=== PATIENT | male | born 1955 | race African-American/Black ===

== ENCOUNTER 2017-04-08 22:24 | Emergency (ER) | payer BC, MEDICAID ==
[~2017-04-08] VITALS: Ht 180.3 cm; Wt 94.8 kg
[~2017-04-08 22:24] MED LIST: ALEVE220 M2 PO; ALEVE220 MG PO; AMOXICILLIN/CL875 MG PO; AMOXICILLIN500 MG PO; AMOXICILLIN875 MG OR; ANTIVERT PO; AUGMENTIN875TAB PO; BACTRIM DS1 TAB PO; CIPRO500 MG OR; CIPROFLOXACN500 MG PO; CLOPIDOGREL75 MG PO; DEBROX6.5 % OT; FLAGYL500 MG OR; FLEXERIL5 M1 PO; KETOROLAC60 MG/2 ML IJ; LOPROX0.771 EX; LORTAB 5 OR; MELOXICAM15 MG PO; METFORMIN HCL850 MG PO; METFORMIN500 MG PO; METFORMIN850 MG PO; METRONIDAZOL500 MG PO; MULTIVITAM10 PO; NAPROSYN500 MG PO; NO HOME MEDS; ONDANSETRON4 MG PO; TRIAMCINOLON0.11 EX; ULTRAM50 MG PO; VIAGRA100 MG PO; ZITHROMAX500 MG PO
[2017-04-08] MEDS ORDERED: ELIQUIS5 MG PO (22:36)
[2017-04-08] MEDS ORDERED: LISINOPRIL10 MG PO (22:37)
[2017-04-08] MEDS ORDERED: ATORVASTATIN CA10 MG PO (22:37)
[2017-04-08] MEDS ORDERED: METOPROL TAR25 MG PO (22:38)
[2017-04-08] MEDS ORDERED: ULTRAM50 M1 PO (23:57)
[2017-04-09] VITALS: BP 133/71
== END 2017-04-09 | disposition home or self-care (01) | DRG 552 ==
LOC: ED 22:24
DX: M46.92 Unspecified inflammatory spondylopathy, cervical region (principal); M54.2 Cervicalgia

== ENCOUNTER 2019-07-09 | Emergency (ER) | payer OTHER ==
[~2019-07-09] MED LIST changes: +ATORVASTATIN CA10 MG PO; +ELIQUIS5 MG PO; +LISINOPRIL10 MG PO; +METOPROL TAR25 MG PO; +ULTRAM50 M1 PO
== END 2019-07-09 20:25 | disposition home or self-care (01) | DRG 605 ==
DX: S80.02XA Contusion of left knee, initial encounter (principal); S30.0XXA Contusion of lower back and pelvis, initial encounter; S10.93XA Contusion of unspecified part of neck, initial encounter; F17.210 Nicotine dependence, cigarettes, uncomplicated; V03.00XA Pedestrian on foot injured in collision with car, pick-up truck or van in nontraffic accident, initial encounter